=== PATIENT | female | born 1975 | race Caucasian/White ===

== ENCOUNTER 2017-02-07 16:04 | Emergency (ER) | payer OTHER ==
[~2017-02-07] VITALS: Ht 162.5 cm; Wt 58.1 kg
[~2017-02-07 16:04] MED LIST: AMOXICILLIN500 M2 PO; CLARITIN-D 24 H1 TAB PO; MACROBID100 M1 PO; NKHM; PREDNISONE20 M1 PO
[2017-02-07 16:27] VITALS: BP 139/90
[2017-02-07 16:57] LABS: BASO # 0.1 10*3/uL (0.0-0.1); BASO % 0.6 % (0.0-1.0); EOS # 0.1 10*3/uL (0.0-0.4); HEMATOCRIT 41.2 % (37.0-47.0); HEMOGLOBIN 13.8 g/dl (12.0-16.0); LYMPH # 2.5 10*3/uL (1.3-4.4); LYMPH % 27.7 % (27.0-41.0); MEAN CELL VOLUME 95.2 fl (81.0-99.0); MEAN CORPUSCULAR HGB 31.9 pg (27.0-31.0); MEAN CORPUSCULAR HGB CONC 33.5 g/dl (33.0-37.0); MEAN PLATELET VOLUME 9.9 fl (9.6-12.3); MONO # 0.5 10*3/uL (0.1-1.0); MONO % 5.7 % (3.0-9.0); NEUT # 5.8 10*3/uL (2.3-7.9); NEUT % 64.7 % (47.0-73.0); PLATELET COUNT AUTOMATED 223 10*3/uL (130-400); RED BLOOD COUNT 4.33 10*6/uL (4.10-5.10); RED CELL DISTRI WIDTH 12.6 % (0-14.5)
[2017-02-07 17:12] LABS: ALBUMIN 3.8 gm/dl (3.1-4.5); ALKALINE PHOSPHATASE 68 U/L (45-117); BUN 11 mg/dl (7-24); CHLORIDE 107 mmol/L (98-107); CREATININE 0.67 mg/dL (0.55-1.02); POTASSIUM 3.8 mmol/L (3.5-5.1); SGOT/AST 15 IU/L (3-35); SGPT/ALT 22 U/L (12-78); SODIUM 143 mmol/L (136-145); TOTAL PROTEIN 7.5 gm/dL (6.4-8.2)
[2017-02-07 17:57] LABS: BILIRUBIN NEGATIVE (NEGATIVE); BLOOD 3+ (NEGATIVE); CLARITY SL CLOUDY (CLEAR); COLOR YELLOW (YELLOW); GLUCOSE NEGATIVE (NEGATIVE); KETONE NEGATIVE (NEGATIVE); LEUKO ESTERASE NEGATIVE (NEGATIVE); NITRITE NEGATIVE (NEGATIVE); PH 6.5 (5.0-9.0); UROBILINOGEN 0.2 E.U./dl (0.2-1.0)
[2017-02-07 18:09] LABS: EPITHELIAL CELLS 20-25
[2017-02-07] MEDS ORDERED: NAPROSYN500 MG PO (19:36)
== END 2017-02-07 19:46 | disposition home or self-care (01) ==
LOC: ED 16:04
PROVIDERS: Nurse Practitioner Family
DX: R10.9 Unspecified abdominal pain (principal); F17.200 Nicotine dependence, unspecified, uncomplicated

== ENCOUNTER 2017-05-18 13:20 | Emergency (ER) | payer OTHER ==
[~2017-05-18] VITALS: Ht 162.5 cm; Wt 58.1 kg
[~2017-05-18 13:20] MED LIST changes: +NAPROSYN500 MG PO
[2017-05-18 13:42] LABS: BILIRUBIN NEGATIVE (NEGATIVE); BLOOD 3+ (NEGATIVE); CLARITY SL CLOUDY (CLEAR); COLOR YELLOW (YELLOW); GLUCOSE NEGATIVE (NEGATIVE); KETONE TRACE (NEGATIVE); LEUKO ESTERASE NEGATIVE (NEGATIVE); NITRITE NEGATIVE (NEGATIVE); SPECIFIC GRAVITY 1.025 (1.005-1.030)
[2017-05-18 13:43] LABS: BASO # 0.1 10*3/uL (0.0-0.1); BASO % 0.5 % (0.0-1.0); EOS # 0.3 10*3/uL (0.0-0.4); EOS % 2.5 % (1.0-4.0); HEMATOCRIT 42.3 % (37.0-47.0); HEMOGLOBIN 13.9 g/dl (12.0-16.0); LYMPH # 1.9 10*3/uL (1.3-4.4); LYMPH % 18.1 % (27.0-41.0); MEAN CELL VOLUME 98.1 fl (81.0-99.0); MEAN CORPUSCULAR HGB 32.3 pg (27.0-31.0); MEAN CORPUSCULAR HGB CONC 32.9 g/dl (33.0-37.0); MEAN PLATELET VOLUME 9.8 fl (9.6-12.3); MONO # 0.7 10*3/uL (0.1-1.0); MONO % 6.4 % (3.0-9.0); NEUT # 7.7 10*3/uL (2.3-7.9); NEUT % 72.2 % (47.0-73.0); PLATELET COUNT AUTOMATED 243 10*3/uL (130-400); RED BLOOD COUNT 4.31 10*6/uL (4.10-5.10); RED CELL DISTRI WIDTH 12.8 % (0-14.5); WHITE BLOOD COUNT 10.6 10*3/uL (4.8-10.8)
[2017-05-18 13:55] LABS: MUCOUS 1+; RBC 21-30 rbc/hpf (0-2); WBC 0-2 wbc/hpf (0-5)
[2017-05-18 13:57] LABS: ALBUMIN 3.8 gm/dl (3.1-4.5); ALKALINE PHOSPHATASE 59 U/L (45-117); BUN 12 mg/dl (7-24); CHLORIDE 105 mmol/L (98-107); CREATININE 0.66 mg/dL (0.55-1.02); POTASSIUM 3.9 mmol/L (3.5-5.1); SGOT/AST 12 IU/L (3-35); SGPT/ALT 21 U/L (12-78); SODIUM 140 mmol/L (136-145); TOTAL PROTEIN 7.3 gm/dL (6.4-8.2)
[2017-05-18 13:59] LABS: BETA-HCG, QUANT < 1.0 mIU/mL (1-3)
[2017-05-18] MEDS ORDERED: PYRIDIUM100 MG PO (15:20)
[2017-05-18 15:27] VITALS: BP 126/76
== END 2017-05-18 15:26 | disposition home or self-care (01) ==
LOC: ED 13:20
PROVIDERS: Student in an Organized Health Care Education/Training Program
DX: R10.30 Lower abdominal pain, unspecified (principal); F17.200 Nicotine dependence, unspecified, uncomplicated; F10.10 Alcohol abuse, uncomplicated

== ENCOUNTER 2017-09-03 20:50 | Emergency (ER) | payer OTHER ==
[~2017-09-03] VITALS: Ht 162.5 cm; Wt 57.6 kg
[~2017-09-03 20:50] MED LIST changes: +PYRIDIUM100 MG PO
[2017-09-03 20:55] VITALS: BP 124/74
[2017-09-03] MEDS ORDERED: AMOXICILLIN500 M2 PO (21:05)
== END 2017-09-03 21:25 | disposition home or self-care (01) ==
LOC: ED 20:50
DX: H66.92 Otitis media, unspecified, left ear (principal); F17.200 Nicotine dependence, unspecified, uncomplicated; F10.10 Alcohol abuse, uncomplicated; Z79.899 Other long term (current) drug therapy

== ENCOUNTER → 2020-03-29 | Outpatient (CLI) | payer OTHER | END | disposition home or self-care (01) | LOC: COVID19 13:28 | PROVIDERS: ATTEND Student in an Organized Health Care Education/Training Program | DX: Z11.52 Encounter for screening for COVID-19 (principal) ==

== ENCOUNTER 2020-09-24 18:16 | Emergency (ER) | payer OTHER ==
[~2020-09-24] VITALS: Ht 162.5 cm; Wt 64.4 kg
[2020-09-24 18:26] VITALS: BP 131/53
[2020-09-24 19:06] LABS: BASO % 0.6 % (0.0-1.0); EOS # 0.2 10*3/uL (0.0-0.4); EOS % 3.5 % (1.0-4.0); HEMATOCRIT 39.8 % (37.0-47.0); LYMPH # 2.6 10*3/uL (1.3-4.4); LYMPH % 41.5 % (27.0-41.0); MEAN CELL VOLUME 96.4 fl (81.0-99.0); MEAN CORPUSCULAR HGB 32.2 pg (27.0-31.0); MEAN CORPUSCULAR HGB CONC 33.4 g/dl (33.0-37.0); MEAN PLATELET VOLUME 9.9 fl (9.6-12.3); MONO # 0.5 10*3/uL (0.1-1.0); MONO % 8.2 % (3.0-9.0); NEUT # 2.9 10*3/uL (2.3-7.9); PLATELET COUNT AUTOMATED 223 10*3/uL (130-400); RED BLOOD COUNT 4.13 10*6/uL (4.10-5.10); RED CELL DISTRI WIDTH 12.5 % (0-14.5); WHITE BLOOD COUNT 6.2 10*3/uL (4.8-10.8)
[2020-09-24 19:22] LABS: ALBUMIN 3.6 gm/dl (3.1-4.5); ALKALINE PHOSPHATASE 63 U/L (45-117); BUN 12 mg/dl (7-24); CHLORIDE 110 mmol/L (98-107); CREATININE 0.73 mg/dL (0.55-1.02); POTASSIUM 3.6 mmol/L (3.5-5.1); SGOT/AST 14 IU/L (3-35); SGPT/ALT 22 U/L (12-78); SODIUM 138 mmol/L (136-145); TOTAL PROTEIN 7.2 gm/dL (6.4-8.2)
[2020-09-24 19:23] LABS: TROPONIN I < 0.015 ng/ml (<0.045)
[2020-09-24] MEDS ORDERED: NAPROXEN250 MG PO (20:33)
== END 2020-09-24 20:56 | disposition home or self-care (01) ==
LOC: ED 18:16
PROVIDERS: Internal Medicine
DX: R07.89 Other chest pain (principal); Z79.899 Other long term (current) drug therapy; Z79.2 Long term (current) use of antibiotics

== ENCOUNTER → 2020-10-26 | Outpatient (CLI) | payer OTHER ==
[~2020-10-26] MED LIST changes: +NAPROXEN250 MG PO
== END | disposition home or self-care (01) ==
LOC: US 07:24
PROVIDERS: ATTEND Nurse Practitioner Women's Health
DX: D25.1 Intramural leiomyoma of uterus (principal); N92.0 Excessive and frequent menstruation with regular cycle; N94.10 Unspecified dyspareunia; N94.6 Dysmenorrhea, unspecified

== ENCOUNTER → 2020-12-18 | Outpatient (CLI) | payer OTHER | END | disposition home or self-care (01) | LOC: COVID19 14:57 | PROVIDERS: ATTEND Internal Medicine | DX: Z11.52 Encounter for screening for COVID-19 (principal) ==

== ENCOUNTER → 2020-12-30 | Outpatient (CLI) | payer OTHER | END | disposition home or self-care (01) | LOC: COVID19 15:28 | PROVIDERS: ATTEND Internal Medicine | DX: Z11.52 Encounter for screening for COVID-19 (principal) ==

== ENCOUNTER 2021-06-28 13:35 | Emergency (ER) | payer OTHER ==
[~2021-06-28] VITALS: Ht 162.5 cm; Wt 65.8 kg
[2021-06-28 17:03] LABS: BASO % 0.5 % (0.0-1.0); EOS # 0.1 10*3/uL (0.0-0.4); EOS % 1.3 % (1.0-4.0); HEMATOCRIT 41.8 % (37.0-47.0); LYMPH # 2.4 10*3/uL (1.3-4.4); MEAN CELL VOLUME 94.6 fl (81.0-99.0); MEAN CORPUSCULAR HGB 31.7 pg (27.0-31.0); MEAN CORPUSCULAR HGB CONC 33.5 g/dl (33.0-37.0); MEAN PLATELET VOLUME 9.8 fl (9.6-12.3); MONO # 0.4 10*3/uL (0.1-1.0); MONO % 5.5 % (3.0-9.0); NEUT # 4.6 10*3/uL (2.3-7.9); NEUT % 60.6 % (47.0-73.0); PLATELET COUNT AUTOMATED 251 10*3/uL (130-400); RED BLOOD COUNT 4.42 10*6/uL (4.10-5.10); RED CELL DISTRI WIDTH 12.1 % (0-14.5); WHITE BLOOD COUNT 7.6 10*3/uL (4.8-10.8)
[2021-06-28 17:21] LABS: ALKALINE PHOSPHATASE 59 U/L (45-117); BUN 12 mg/dl (7-24); CHLORIDE 111 mmol/L (98-107); CREATININE 0.72 mg/dL (0.55-1.02); LIPASE 93 U/L (73-393); POTASSIUM 3.5 mmol/L (3.5-5.1); SGOT/AST 15 IU/L (3-35); SGPT/ALT 18 U/L (12-78); SODIUM 142 mmol/L (136-145); TOTAL PROTEIN 7.1 gm/dL (6.4-8.2)
[2021-06-28 19:48] VITALS: BP 117/68
== END 2021-06-28 20:59 | disposition home or self-care (01) ==
LOC: ED 13:35
PROVIDERS: Physician Assistant
DX: R19.7 Diarrhea, unspecified (principal); K62.89 Other specified diseases of anus and rectum

== ENCOUNTER 2021-09-08 08:46 | Emergency (ER) | payer OTHER ==
[~2021-09-08] VITALS: Ht 162.5 cm; Wt 64.4 kg
[2021-09-08 08:52] VITALS: BP 132/84
== END 2021-09-08 09:30 | disposition home or self-care (01) ==
LOC: ED 08:46
DX: T75.4XXA Electrocution, initial encounter (principal); Y92.89 Other specified places as the place of occurrence of the external cause

== ENCOUNTER 2022-09-27 11:25 | Emergency (ER) | payer BC ==
[~2022-09-27] VITALS: Ht 162.5 cm; Wt 64.4 kg
[2022-09-27 11:30] VITALS: BP 136/80
[2022-09-27] MEDS ORDERED: CYCLOBENZAPRINE5 M3 PO (13:38)
== END 2022-09-27 13:43 | disposition home or self-care (01) ==
LOC: ED 11:25
DX: M54.31 Sciatica, right side (principal)

== ENCOUNTER 2023-11-24 10:43 | Emergency (ER) | payer OTHER ==
[~2023-11-24] VITALS: Ht 162.5 cm; Wt 68.9 kg
[~2023-11-24 10:43] MED LIST changes: +CYCLOBENZAPRINE5 M3 PO
[2023-11-24 11:13] VITALS: BP 150/99
[2023-11-24] MEDS ORDERED: Acetaminophen/Oxycodone 5 MG/325 MG TABLET PO ONE (11:35)
[2023-11-24 12:03] LABS: BASO % 0.4 % (0.0-1.0); EOS # 0.1 10*3/uL (0.0-0.4); EOS % 1.1 % (1.0-4.0); HEMATOCRIT 40.7 % (37.0-47.0); LYMPH # 1.8 10*3/uL (1.3-4.4); LYMPH % 17.5 % (27.0-41.0); MEAN CELL VOLUME 97.8 fl (81.0-99.0); MEAN CORPUSCULAR HGB CONC 32.7 g/dl (33.0-37.0); MONO # 0.5 10*3/uL (0.1-1.0); NEUT # 7.7 10*3/uL (2.3-7.9); NEUT % 75.7 % (47.0-73.0); PLATELET COUNT AUTOMATED 227 10*3/uL (130-400); RED BLOOD COUNT 4.16 10*6/uL (4.10-5.10); RED CELL DISTRI WIDTH 12.8 % (0-14.5); WHITE BLOOD COUNT 10.2 10*3/uL (4.8-10.8)
[2023-11-24 12:18] LABS: BUN 8 mg/dl (9-23); CHLORIDE 105 mmol/L (98-107); POTASSIUM 3.7 mmol/L (3.4-5.1)
[2023-11-24] MEDS ORDERED: CEPHALEXIN500 M1 PO (12:36)
[2023-11-24] MEDS ORDERED: VIBRAMYCIN100 MG PO (12:36)
== END 2023-11-24 12:35 | disposition home or self-care (01) ==
LOC: ED 10:43
PROVIDERS: Physician Assistant Medical
DX: L02.31 Cutaneous abscess of buttock (principal)

== ENCOUNTER → 2023-11-27 | Outpatient (CLI) | payer OTHER ==
[~2023-11-27] MED LIST changes: +CEPHALEXIN500 M1 PO; +VIBRAMYCIN100 MG PO
== END | disposition home or self-care (01) ==
LOC: WOUNDCARE 10:12
PROVIDERS: ATTEND Nurse Practitioner Family
DX: L02.31 Cutaneous abscess of buttock (principal); L03.317 Cellulitis of buttock; L53.9 Erythematous condition, unspecified; R60.9 Edema, unspecified; F17.290 Nicotine dependence, other tobacco product, uncomplicated; Z79.899 Other long term (current) drug therapy

== ENCOUNTER → 2023-12-04 | Outpatient (CLI) | payer OTHER | END | disposition home or self-care (01) | LOC: WOUNDCARE 00:57 | PROVIDERS: ATTEND Nurse Practitioner Family | DX: L02.31 Cutaneous abscess of buttock (principal); L03.317 Cellulitis of buttock; L53.9 Erythematous condition, unspecified; R60.9 Edema, unspecified; F17.290 Nicotine dependence, other tobacco product, uncomplicated; Z79.899 Other long term (current) drug therapy ==